=== PATIENT | male | born 1985 | race Two or more races ===

== ENCOUNTER 2019-02-16 13:13 | Emergency (ER) | payer OTHER, SELFPAY ==
[2019-02-16 13:13] VITALS: BP 125/75; PULSE 83; RESP 16; TEMP 36.4; O2SAT 100; BMI 22.4
--- NOTE | 2019-02-16 13:32 | ED.VISSUMM ---
- ER Visit Summary Date of Service: 02/16/19 Chief Complaint: Abscess History of Present Illness: The patient is a 33 M who states that he has an abscess in his suprapubic area. Is been there for couple weeks. He denies any drainage. No fevers. He states it started getting mildly painful which is why he came in today. He has a history of the same in the past. He took nothing for it. He has no PCP currently. Physical Examination: Vital signs are reviewed. Skin exam reveals a skin growth on the suprapubic area. It appears to be a skin tag. There is no erythema. There is no fluctuance. It is right on his waistline. Test Results: None performed Emergency Department Course and Treatment: The patient appears to have a skin growth at the waistline. It is painful. It is not infected. It appears to be a skin tag. I anesthetized with lidocaine and removed it at its base where it meets the skin. Bleeding was controlled. It did not appear cancerous. Patient will do local wound care with [id number] topical Neosporin. He will be given a doctor to follow-up with. Treatment Plan: [] Disposition: Discharge Impression: Painful skin growth This note was generated with [employer] dictation software. It may contain incorrect words, spelling, and punctuation that were not noted in review of the chart prior to signing
--- NOTE | 2019-02-16 13:59 | ED.DEP ---
ED Disposition - Plan for ED Patient: Instructions: Wound Care Referrals: Care Physician,No Primary [Primary Care Provider] - Janice Moran MD [[facility]] -
== END 2019-02-16 14:32 | disposition home or self-care (01) ==
PROVIDERS: Emergency Provider Emergency Medicine
DX: L91.8 Other hypertrophic disorders of the skin (principal); R10.30 Lower abdominal pain, unspecified
CPT/HCPCS: 99283